=== PATIENT | male | born 1980 | race Caucasian/White ===

== ENCOUNTER 2021-08-29 08:28 | Emergency (ER) | payer SELFPAY ==
[~2021-08-29] VITALS: Ht 170.2 cm; Wt 84.2 kg
[2021-08-29] MEDS ORDERED: HALOPERIDOL LACTATE 5 MG/ML VIAL IM ONE (08:45)
[2021-08-29] MEDS ORDERED: DiphenhydrAMINE HCL 50 MG/ML VIAL IM ONE (08:45)
[2021-08-29] MEDS ORDERED: SODIUM CHLORIDE 0.9% 1,000 ML IV ONE ×2 (08:45→15:15)
[2021-08-29] MEDS ORDERED: LORazepam 2 MG/ML VIAL IM ONE (08:45)
[2021-08-29 08:59] LABS: BASOPHILS % (AUTO) 0.4 % (0.0-2.0); EOSINOPHILS % (AUTO) 0.6 % (1.0-6.0); HEMATOCRIT 38.7 % (41-53); HEMOGLOBIN 12.8 g/dL (13.5-17.5); LYMPHOCYTES % (AUTO) 9.4 % (22.0-44.0); MEAN CORPUSCULAR HEMOGLOBIN 26.8 pg (26.0-34.0); MEAN CORPUSCULAR VOLUME 81 fL (80-100); MONOCYTES # (AUTO) 0.9 K/uL (0.1-1.0); MONOCYTES % (AUTO) 7.9 % (2.0-9.0); NEUTROPHILS # (AUTO) 9.1 K/uL (1.8-7.7); NEUTROPHILS % (AUTO) 81.7 % (40.0-70.0); PLATELET COUNT (AUTO) 297 K/uL (150-450); RED BLOOD CELL COUNT(AUTO) 4.75 MIL/uL (4.50-5.90)
[2021-08-29 09:41] LABS: ALANINE AMINOTRANSFERASE 85 U/L (12-78); ALKALINE PHOSPHATASE 85 U/L (46-116); ANION GAP 13 mmol/L (8-16); ASPARTATE AMINOTRANSFERASE 103 U/L (15-37); BILIRUBIN,TOTAL 1.2 mg/dL (0.1-1.0); CALCIUM, TOTAL 9.7 mg/dL (8.8-10.5); CARBON DIOXIDE 25 mmol/L (22-29); CHLORIDE 100 mmol/L (98-107); CREATININE 1.32 mg/dL (0.60-1.30); GLOMERULAR FILTR. RATE CALC 60 mL/min (>60); GLUCOSE,RANDOM 76 mg/dL (70-110); SODIUM SERUM 138 mmol/L (136-145); TOTAL PROTEIN, SERUM 8.9 g/dL (6.4-8.2); UREA NITROGEN, BLOOD 10 mg/dL (7-18)
[2021-08-29 09:46] LABS: CREATINE KINASE, TOTAL ONLY 1363 U/L (39-308); POTASSIUM 2.8 mmol/L (3.5-5.1)
[2021-08-29] MEDS ORDERED: POTASSIUM CHL 20 MEQ/0.9% NS 1,000 ML IV ONE (10:00)
[2021-08-29] MEDS ORDERED: BICA50TA49 PO (15:32)
[2021-08-29] MEDS ORDERED: COL RITE PO (15:32)
[2021-08-29] MEDS ORDERED: ZALE5CAP6 PO (15:32)
[2021-08-29] MEDS ORDERED: FISH1CAP50 PO (15:32)
[2021-08-29] MEDS ORDERED: LEVE250T4 PO (15:32)
[2021-08-29] MEDS ORDERED: AMLO-257 PO (15:32)
[2021-08-29 16:03] VITALS: BP 117/74
== END 2021-08-29 17:33 | disposition home or self-care (01) ==
LOC: EMS 08:33 → EDSEX 08:33 → EMS 17:33
DX: R41.82 Altered mental status, unspecified (principal); E87.6 Hypokalemia; M62.82 Rhabdomyolysis; F15.10 Other stimulant abuse, uncomplicated; F17.210 Nicotine dependence, cigarettes, uncomplicated
CPT/HCPCS: 36415; 80053; 82550; 85025; 96361; 96365; 96372; 99291; G0480; J1200; J1630; J2060; J3480; J7030; 96360

== ENCOUNTER 2021-08-29 19:55 | Emergency (ER) | payer SELFPAY ==
[~2021-08-29] VITALS: Ht 175.3 cm; Wt 84.1 kg
[~2021-08-29 19:55] MED LIST: AMLO-257 PO; BICA50TA49 PO; COL RITE PO; FISH1CAP50 PO; LEVE250T4 PO; ZALE5CAP6 PO
[2021-08-29 22:12] LABS: ANION GAP 6 mmol/L (8-16); CARBON DIOXIDE 28 mmol/L (22-29); CHLORIDE 102 mmol/L (98-107); CREATININE 0.87 mg/dL (0.60-1.30); GLOMERULAR FILTR. RATE CALC > 60 mL/min (>60); GLUCOSE,RANDOM 88 mg/dL (70-110); POTASSIUM 3.9 mmol/L (3.5-5.1); SODIUM SERUM 136 mmol/L (136-145); UREA NITROGEN, BLOOD 9 mg/dL (7-18)
[2021-08-29 22:38] LABS: ALANINE AMINOTRANSFERASE 71 U/L (12-78); ALBUMIN 3.3 g/dL (3.4-5.0); ALKALINE PHOSPHATASE 70 U/L (46-116); ASPARTATE AMINOTRANSFERASE 92 U/L (15-37); BILIRUBIN,TOTAL 2.1 mg/dL (0.1-1.0); CALCIUM, TOTAL 8.6 mg/dL (8.8-10.5); TOTAL PROTEIN, SERUM 7.7 g/dL (6.4-8.2)
[2021-08-29 22:49] LABS: CREATINE KINASE, TOTAL ONLY 1712 U/L (39-308)
[2021-08-29 23:43] VITALS: BP 117/74
== END 2021-08-30 00:02 | disposition home or self-care (01) ==
LOC: EMS 19:55
DX: F15.90 Other stimulant use, unspecified, uncomplicated (principal); M62.82 Rhabdomyolysis; F17.210 Nicotine dependence, cigarettes, uncomplicated
CPT/HCPCS: 80053; 82550; 99283